=== PATIENT | female | born 1945 | race American Indian/Alaskan Native ===

== ENCOUNTER 2017-03-27 08:56 | Outpatient (CLI) | payer MEDICARE ==
[2017-03-27 09:46] LABS: Albumin 4.5 g/dL (3.9-5); Albumin/Globulin Ratio 1.4 %; Bilirubin,Total 0.5 mg/dL (0.1-1.2); Calcium 9.6 mg/dL (8.4-10.2); Potassium 4.4 mmol/L (3.6-5.0); Total Protein 7.7 g/dL (6.3-8.2)
--- NOTE | 2017-03-28 08:04 | Cat Scan Report ---
CT ABDOMEN PELVIS WITH CONTRAST: HISTORY: Abdominal pain, history of appendiceal cancer. COMPARISON: Success . TECHNIQUE: Helical CT in 1.25mm intervals following IV contrast. Sagittal and coronal reconstructions. FINDINGS: Lung bases: Well-aerated. No evidence for nodule or pleural fluid. Normal heart size. Small hiatal hernia is noted. Liver: Normal size and attenuation. Multiple tiny liver cysts are noted and unchanged. No suspicious liver mass. Biliary system: normal. Pancreas: normal. Spleen: normal. Kidneys/ureters/bladder: The kidneys are mildly lobulated with mild cortical thinning. No focal renal lesion or hydronephrosis. The ureters and bladder are unremarkable. Adrenal glands: normal. Aorta: normal. Intestines: Appendectomy changes are noted. No recurrent mass, adenopathy or inflammatory changes. Diverticulosis of the sigmoid colon is unchanged. No evidence for bowel obstruction. Pelvic viscera: Hysterectomy changes are noted. The ovaries are unremarkable. Musculoskeletal: There are severe degenerative changes in the thoracolumbar spine and hips. No fracture or suspicious bony lesion. IMPRESSION: No evidence for recurrent or metastatic disease in the abdomen or pelvis. Stable findings since 2014. Surgical changes as described. Multiple tiny liver cysts which are unchanged. Mild chronic renal parenchymal disease. Mild sigmoid diverticulosis.
== END 2017-03-27 08:57 | disposition home or self-care (01) ==
LOC: CT 08:56
DX: C18.1 Malignant neoplasm of appendix (principal); K44.9 Diaphragmatic hernia without obstruction or gangrene; N18.9 Chronic kidney disease, unspecified; K76.89 Other specified diseases of liver; K57.30 Diverticulosis of large intestine without perforation or abscess without bleeding; M47.895 Other spondylosis, thoracolumbar region; R10.9 Unspecified abdominal pain; Z79.899 Other long term (current) drug therapy; Z90.89 Acquired absence of other organs; Z90.710 Acquired absence of both cervix and uterus
CPT/HCPCS: 36415; 74177; 80053; 82607; 84443; Q9967

== ENCOUNTER 2019-02-12 17:15 | Outpatient (CLI) | payer MEDICARE ==
[2019-02-12 19:07] LABS: Albumin 4.5 g/dL (3.9-5); Calcium 9.9 mg/dL (8.4-10.2)
== END 2019-02-12 17:16 | disposition home or self-care (01) ==
LOC: LAB 17:15
PROVIDERS: ATTEND Internal Medicine Nephrology
DX: I12.9 Hypertensive chronic kidney disease with stage 1 through stage 4 chronic kidney disease, or unspecified chronic kidney disease (principal); N18.3 Chronic kidney disease, stage 3 (moderate); M19.90 Unspecified osteoarthritis, unspecified site; Z86.2 Personal history of diseases of the blood and blood-forming organs and certain disorders involving the immune mechanism; Z90.710 Acquired absence of both cervix and uterus; Z87.891 Personal history of nicotine dependence
CPT/HCPCS: 36415; 80048; 82040; 84100